=== PATIENT | male | born 1945 | race Caucasian/White ===

== ENCOUNTER 2016-05-05 16:48 | Emergency (ER) | payer MEDICARE, OTHER ==
[~2016-05-05] VITALS: Ht 177.8 cm; Wt 125.0 kg
[~2016-05-05 16:48] MED LIST: ENBR25IN3 SC; FOLI1TAB PO; METH2.5 INJ; MULT-65 PO; PRED10 PO
[2016-05-05 16:59] VITALS: BP 135/72; PULSE 73; RESP 16; TEMP 98.8; O2SAT 97
[2016-05-05] MEDS ORDERED: ENBR50IN2 SQ (18:57)
[2016-05-05] MEDS ORDERED: PRED5TAB PO (18:57)
[2016-05-05] MEDS ORDERED: PRIM50TA5 PO (18:57)
--- NOTE | 2016-05-05 18:57 | PD ---
HPI Chief Complaint: Cold / Flu Symptoms Time Seen by Provider: 18:55 Travel History International Travel<30 days: No Contact w/Intl Traveler<30days: No Traveled to known affect area: No History of Present Illness HPI 71-year-old male presents to the emergency department for evaluation of coughing Chest congestion for 2 weeks. He states that he [facility] his [facility] Z-Cornell. He finished it 2 days ago. He states that his cough and chest congestion has worsened despite the antibiotic. He states he caught his primary care physician today who referred him to the emergency department due to rheumatoid arthritis and being immunocompromised from medications. He denies any fevers. He has reported history of pneumonia in the past. Patient denies any abdominal pain. No vomiting. He denies any shortness of breath or chest pain. Patient does complain of left ear pain. He denies any history of congestive heart failure. PFSH Past Medical History Anemia: Yes (CHRONIC, LOW IRON) Arthritis: Yes (RA) Asthma: No Atrial Fibrillation: Yes Autoimmune Disease: No Blood Disorders: No Anxiety: No Depression: No Heart Rhythm Problems: Yes (AFIB) Cancer: No Cardiovascular Problems: Yes High Cholesterol: No Chemotherapy: No (CURRENTLY ON ENBREL FOR RA) Chest Pain: No Congestive Heart Failure: No COPD: No Cerebrovascular Accident: No Diabetes: No Diminished Hearing: No Endocrine: Yes (HYPOGLYCEMIA) Gastrointestinal Disorders: Yes (DUODENAL ULCER ) GERD: No Genitourinary: Yes Headaches: Yes Hepatitis: No Hiatal Hernia: No Heparin Induced Thrombocytopen: No Hypertension: No Immune Disorder: Yes (RHEUMATOID ARTHRITIS) Implanted Vascular Access Dvce: No Kidney Stones: No Medical other: No Musculoskeletal: Yes (ORIF RT ANKLE 1968, ) Neurologic: No Psychiatric: No Reproductive: No Respiratory: No Immunizations Current: No Migraines: No Radiation Therapy: No Renal Failure: No Seizures: No Sickle Cell Disease: No Sleep Apnea: No Thyroid Disease: No Ulcer: Yes Past Surgical History AICD: No Appendectomy: Yes Arteriovenous Shunt: No Body Medical Devices: CLARA KNEE REPLACED SCREW RT ANKLE Cardiac Surgery: No Ear Surgery: No Endocrine Surgery: No Eye Surgery: No Genitourinary Surgery: No Gynecologic Surgery: No Insulin Pump: No Joint Replacement: Yes (CLARA. KNEES) Neurologic Surgery: No Oral Surgery: Yes Pacemaker: No Thoracic Surgery: No Other Surgery: Yes (RT KNE CYST REMOVAL) Social History Alcohol Use: No Tobacco Use: No (QUIT "25 YEARS AGO" STATED 05/05/16) Substance Use: No Allergies-Medications (Allergen,Severity, Reaction): Coded Allergies: Remicade (Verified Allergy, Severe, Anaphylaxis, 05/05/16) Ferrous Sulfate (Verified Adverse Reaction, Severe, 05/05/16) CONSTIPATION Sulfa (Verified Adverse Reaction, Unknown, RASH, 05/05/16) Reported Meds & Prescriptions Reported Meds & Active Scripts Active Reported Primidone 50 Mg Tab 12.5 Mg PO HS Prednisone 5 Mg Tab 5 Mg PO DAILY Enbrel PF Inj (Etanercept) 50 mg/ml Syr 50 Mg SQ Q7D Review of Systems Except as stated in HPI: all other systems reviewed are Neg Physical Exam Narrative GENERAL: Well-developed well-nourished elderly male patient, afebrile. SKIN: Warm and dry. HEAD: Normocephalic. Atraumatic. ENT: Mucosa pink and moist. No erythema or exudates. No uvular edema. No uvular , palatal, or tonsillar deviation. Airway patent. Nasal turbinates appear normal without nasal blood, purulent drainage or septal hematoma. Bilateral tympanic membranes are clear without erythema or perforation. EYES: No scleral icterus. No injection or drainage. NECK: Supple, trachea midline. No JVD or lymphadenopathy. CARDIOVASCULAR: Regular rate and rhythm without murmurs, gallops, or rubs. RESPIRATORY: Breath sounds equal bilaterally. No accessory muscle use. Diffuse rhonchi noted. GASTROINTESTINAL: Abdomen soft, non-tender, nondistended. MUSCULOSKELETAL: No cyanosis, or edema. BACK: Nontender without obvious deformity. No CVA tenderness. Data Data Last Documented VS Vital Signs Date Time Temp Pulse Resp B/P Pulse Ox O2 Delivery O2 Flow Rate FiO2 05/05/16 19:34 79 16 147/74 96 Room Air 05/05/16 16:59 98.8 Orders Complete Blood Count With Diff (05/05/16 18:53) Basic Metabolic Panel (Bmp) (05/05/16 18:53) Chest, Pa & Lat (05/05/16 ) Ecg Monitoring (05/05/16 18:53) Iv Access Insert/Monitor (05/05/16 18:53) Oximetry (05/05/16 18:53) Oxygen Administration (05/05/16 18:53) Albuterol-Ipratropium Neb (Duoneb Neb) (05/05/16 19:00) Sodium Chloride 0.9% Flush (Ns Flush) (05/05/16 19:00) Labs Laboratory Tests Test 05/05/16 19:30 White Blood Count 6.6 TH/MM3 Red Blood Count 3.43 MIL/MM3 Hemoglobin 9.4 GM/DL Hematocrit 29.4 % Mean Corpuscular Volume 85.6 FL Mean Corpuscular Hemoglobin 27.3 PG Mean Corpuscular Hemoglobin 31.9 % Concent Red Cell Distribution Width 17.4 % Platelet Count 279 TH/MM3 Mean Platelet Volume 7.5 FL Neutrophils (%) (Auto) 66.7 % Lymphocytes (%) (Auto) 20.9 % Monocytes (%) (Auto) 8.6 % Eosinophils (%) (Auto) 2.5 % Basophils (%) (Auto) 1.3 % Neutrophils # (Auto) 4.2 TH/MM3 Lymphocytes # (Auto) 1.4 TH/MM3 Monocytes # (Auto) 0.6 TH/MM3 Eosinophils # (Auto) 0.2 TH/MM3 Basophils # (Auto) 0.1 TH/MM3 CBC Comment DIFF FINAL Differential Comment Sodium Level 142 MEQ/L Potassium Level 4.2 MEQ/L Chloride Level 107 MEQ/L Carbon Dioxide Level 26.5 MEQ/L Anion Gap 9 MEQ/L Blood Urea Nitrogen 26 MG/DL Creatinine 0.69 MG/DL Estimat Glomerular Filtration 112 ML/MIN Rate Random Glucose 85 MG/DL Calcium Level 8.8 MG/DL MDM Medical Decision Making Medical Screen Exam Complete: Yes Emergency Medical Condition: Yes Medical Record Reviewed: Yes Interpretation(s) Last Impressions Chest X-Ray 05/05/16 0000 Signed Impressions: Service Date/Time: April 19:35 - CONCLUSION: No acute disease. Giancarlo Salas MD Differential Diagnosis Bronchitis versus pneumonia versus URI Narrative Course 71-year-old male presents to the emergency department for evaluation of chest congestion and cough. He denies pain or shortness of breath. CBC, BMP are ordered and pending. Chest x-ray is ordered and pending. Patient is given DuoNeb 2. CBC shows a normal white count of 6.6. Hemoglobin 9.4, hematocrit 29.4 which is chronic for patient. BMP shows no acute abnormal. Chest x-ray shows no acute disease. Patient is immunocompromised due to medications. Therefore, the patient will be started on Levaquin. He is instructed to follow with primary care physician. He is instructed to return for any acute worsening of symptoms. Patient is agreeable to this plan. Diagnosis Primary Impression: Bronchitis Referrals: Primary Care Physician call for appointment Patient Instructions: Acute Bronchitis (ED), General Instructions Additional Instructions: Take antibiotic as directed until gone. Follow-up with your primary care physician. Return to the emergency department for any acute worsening of symptoms. Med/Other Pt SpecificInfo: Prescription(s) given Scripts Levofloxacin 750 Mg [id number] Mg PO DAILY 7 Days Ref 0 Prov:Phuong Matthews 05/05/16 Disposition: 01 DISCHARGE HOME Condition: Stable Phuong Matthews May 05, 2016 18:57
[2016-05-05] MEDS ORDERED: SODIUM CHLORIDE 0.9% FLUSH 5 ML FLUSH IVF PRN (19:00)
[2016-05-05] MEDS: RESP: ALBUTEROL 2.5 MG/IPRATROPIUM 0.5 MG NEB (SCH) INH ×2 (19:09→19:10)
[2016-05-05 19:33] VITALS: RESP 16; O2SAT 97
[2016-05-05 19:34] VITALS: BP 147/74; PULSE 79; RESP 16; O2SAT 96
[2016-05-05 19:43] LABS: AUTOMATED NEUTROPHIL # 4.2 TH/MM3 (1.8-7.7); BASOPHIL # 0.1 TH/MM3 (0-0.2); BASOPHIL % 1.3 % (0.0-2.0); EOSINOPHIL # 0.2 TH/MM3 (0-0.4); EOSINOPHIL % 2.5 % (0.0-4.0); HEMATOCRIT 29.4 % (39.0-51.0); HEMO FLAGS DIFF FINAL; LYMPH % 20.9 % (9.0-44.0); LYMPHOCYTE # 1.4 TH/MM3 (1.0-4.8); MEAN CELL VOLUME 85.6 FL (80.0-100.0); MEAN CORPUSCULAR HEMOGLOBIN 27.3 PG (27.0-34.0); MEAN CORPUSCULAR HGB CONC 31.9 % (32.0-36.0); MONO % 8.6 % (0.0-8.0); NEUT % 66.7 % (16.0-70.0); PLATELET COUNT 279 TH/MM3 (150-450); RED BLOOD COUNT 3.43 MIL/MM3 (4.50-5.90); RED CELL DISTRIBUTION WIDTH 17.4 % (11.6-17.2); WHITE BLOOD COUNT 6.6 TH/MM3 (4.0-11.0)
[2016-05-05 19:52] LABS: POTASSIUM 4.2 MEQ/L (3.5-5.1)
[2016-05-05 19:54] LABS: BICARBONATE 26.5 MEQ/L (21.0-32.0)
--- NOTE | 2016-05-05 20:45 | RADHPO ---
EXAM DATE/TIME: 05/05/2016 19:35 [facility] COMPARISON: CHEST SINGLE AP, April 21, 2015, 10:12. INDICATIONS : Patient states cough and congestion. MEDICAL HISTORY : A-Fib, Anemia SURGICAL HISTORY : None. ENCOUNTER: Initial ACUITY: 3 days PAIN SCORE: 3/10 LOCATION: Bilateral chest FINDINGS: PA and lateral views of the chest demonstrate the lungs to be symmetrically aerated without evidence of mass, infiltrate or effusion. The cardiomediastinal contours are unremarkable. Osseous structure s are intact. CONCLUSION: No acute disease. Giancarlo Salas MD on May 05, 2016 at 20:43 Board Certified Radiologist. This report was verified electronically.
[2016-05-05] MEDS ORDERED: LEVO750T33 PO (21:05)
== END 2016-05-05 21:21 | disposition home or self-care (01) ==
LOC: PHED 16:48 → PHEFT 21:21
DX: J40 Bronchitis, not specified as acute or chronic (principal); I48.91 Unspecified atrial fibrillation; D64.9 Anemia, unspecified
CPT/HCPCS: 71020; 80048; 85025; 94640; 94664; 99283